=== PATIENT | female | born 1995 | race Caucasian/White ===

== ENCOUNTER 2020-06-20 04:52 | Outpatient (CLI) | payer SELFPAY ==
[2020-06-20 05:18] VITALS: BP 117/68
--- NOTE | 2020-06-20 08:10 | Ultrasound Report ---
LIMITED OB ULTRASOUND INDICATION: Amniotic fluid index FINDINGS: There is a single intrauterine in a cephalic presentation. Amniotic fluid index i s 7.2 cm which is within the normal range. BIOPHYSICAL PROFILE INDICATION: well-being COMPARISON: None FINDINGS: breathing movement: 2/2 movement: 2/2 posture and tone: 2/2 Qualitative amniotic fluid volume: 2/2 IMPRESSION: Total score for biophysical profile is 8/8 heart rate is 156 bpm Signer Name: Salvador Hardwick MD Signed: 06/20/2020 8:05 AM Workstation Name: [id number]
== END 2020-06-20 09:52 | disposition home or self-care (01) ==
LOC: TRG 04:52 → APU 04:53 → TRG 09:52
PROVIDERS: ATTEND Obstetrics & Gynecology
DX: O47.1 False labor at or after 37 completed weeks of gestation (principal); Z3A.39 39 weeks gestation of pregnancy
CPT/HCPCS: 59025; 76815; 76819

== ENCOUNTER 2020-06-20 23:29 | Inpatient (IN) | payer OTHER, SELFPAY ==
[2020-06-21] MEDS ORDERED: LIDOCAINE (2%) 20 MG/1 ML VIAL 20 ML MDV INFILTRATI ONE (00:01)
[2020-06-21] MEDS ORDERED: MINERAL OIL 30 ML ORAL LIQD PO PRN (00:01)
[2020-06-21] MEDS ORDERED: ePHEDrine SULFATE 50 MG/1 ML INJ IV PRN (00:01)
[2020-06-21] MEDS ORDERED: LACTATED RINGERS 1,000 ML ONE (00:01)
[2020-06-21] MEDS ORDERED: TERBUTALINE 1 MG/1 ML INJ SUB-Q PRN (00:01)
--- NOTE | 2020-06-21 00:16 | History and Physical Report ---
History of Present Illness Date of examination: 06/21/20 Date of admission: 06/21/2020 Chief complaint: Contractions History of present illness: 24 year old presents to L&D in active labor. Patient received care at [facility] and records are available. LMP . EDC 06/25/2020 based on US performed at 8 weeks, 6 days. significant for ESBL E. 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 labs are as follows: A+, antibody screen negative, rubella immune, hepatitis B surface antigen negative, HIV negative, RPR nonreactive, chlamydia negative, gonorrhea negative, AFP negative, 1 hour sugar test 98, GBS negative. Past History Past Medical History: no pertinent history Past Surgical History: no surgical history [employer] History: herpes (HSV 2 positive (on Valtrex suppression, denies lesions or prodromal symptoms)) Family/Genetic History: none Social history: full code. denies: smoking, alcohol abuse, prescription drug abuse, IV drug use - Obstetrical History Expected Date of Delivery: 06/25/20 Actual Gestation: 39 Week(s) 3 Day(s) : 1 Para: 0 Hx # Term Pregnancies: 0 Number of Pregnancies: 0 Spontaneous Abortions: 0 Induced : 0 Number of Living Children: 0 Medications and Allergies Allergies Allergy/AdvReac Type Severity Reaction Status Date / Time No Known Allergies Allergy Verified 06/21/20 00:07 Home Medications Medication Instructions Recorded Confirmed Last Taken Type No Known Home Medications [No 06/21/20 06/21/20 Unknown History Reported Home Medications] Active Meds: Active Medications Ephedrine Sulfate (Ephedrine Sulfate) 10 mg IV Q2M PRN PRN Reason: Hypotension Lactated Ringer's (Lactated Ringers) 1,000 mls @ 125 mls/hr IV DIRECT ROBIN Oxytocin/Sodium Chloride (Pitocin/Ns 30 Unit/500ml) 30 units in 500 mls @ 40 mls/hr IV TITR ROBIN; Protocol Lidocaine (Xylocaine 2%) 20 ml INFILTRATI ONCE ONE Stop: 06/21/20 00:02 Mineral Oil (Mineral Oil) 30 ml PO QHS PRN PRN Reason: Constipation Terbutaline Sulfate (Brethine) 0.25 mg SUB-Q ONCE PRN PRN Reason: Hyperstimulation/Hypertonicity Review of Systems All systems: negative (contractions) - Vital Signs Vital signs: Vital Signs Temp Pulse BP 98.2 F 65 115/67 06/20/20 23:30 06/20/20 23:30 06/20/20 23:30 Temp Pulse Resp BP Pulse Ox 98.2 F 65 115/67 06/20/20 23:30 06/20/20 23:30 06/20/20 23:30 - Physical Exam Abdomen: Positive: normal appearance, soft. Negative: distention, tenderness, guarding, rigidity Genitourinary (Female): Positive: normal external genitalia, normal perenium. Negative: perineal/vulvar lesions Vagina: Positive: normal moisture Uterus: Positive: enlarged. Negative: tender Anus/Rectum: Positive: normal perianal skin Extremities: Positive: normal. Negative: tenderness - Obstetrical FHR: category 2 Cervical Dilatation: 4.5 Cervical Effacement Percentage: 100 station: 0 Uterine Contraction Pattern: Regular Uterine Contraction Intensity: Moderate Results Result Diagrams: 06/20/20 23:40 All other labs normal. Assessment and Plan A: at 39 weeks, 3 days gestation. Active labor. GBS negative. HSV 2 positive serology (no lesions or prodromal symptoms). P: Admit. EFM. Epidural if desired. Continue HSV 2 suppression. Anticipate vaginal .
[2020-06-21 00:26] LABS: Hematocrit 38.1 % (30.3-42.9); Hemoglobin 12.9 gm/dl (10.1-14.3); Mean Corpuscular HGB Conc 34 % (30-34); Mean Corpuscular Volume 89 fl (79-97); Platelet Count 216 K/mm3 (140-440); Red Blood Count 4.28 M/mm3 (3.65-5.03); Red Cell Distribution Width 13.6 % (13.2-15.2)
[2020-06-21] MEDS: valACYclovir 500 MG TAB PO SCH (00:49)
[2020-06-21] MEDS ORDERED: OXYTOCIN DRIP 30 UNITS/500 ML BAG IV SCH ×2 (01:00→07:00)
[2020-06-21] MEDS: LACTATED RINGERS 1,000 ML IV SCH ×2 (01:15→03:23)
[2020-06-21] MEDS ORDERED: DEXMEDETOMIDINE 200 MCG/2 ML VIAL IV ONE (01:19)
[2020-06-21] MEDS ORDERED: NALOXONE 2 MG/2 ML INJ IV PRN (01:53)
[2020-06-21] MEDS ORDERED: diphenhydrAMINE 50 MG/ML VIAL IV PRN (01:53)
[2020-06-21] MEDS ORDERED: ONDANSETRON 4 MG/2 ML INJ IV PRN ×3 (01:53→06:53)
[2020-06-21] MEDS ORDERED: NalbUPHINE 10 MG/1 ML INJ IV PRN (01:53)
--- NOTE | 2020-06-21 01:54 | Anesthesia Consultation ---
Anesthesia Consult and Med Hx Date of service: 06/21/20 - Airway Anesthetic Teeth Evaluation: Good ROM Head & Neck: Adequate Mental/Hyoid Distance: Adequate Mallampati Class: Class I Intubation Access Assessment: Good - Pulmonary Exam CTA: Yes - Cardiac Exam Cardiac Exam: RRR - Pre-Operative Health Status ASA Pre-Surgery Classification: ASA2 Proposed Anesthetic Plan: Epidural - Pulmonary Hx Smoking: No Hx Asthma: No Hx Sleep Apnea: No - Cardiovascular System Hx Hypertension: No Hx Heart Attack/AMI: No - Central Nervous System Hx Seizures: No Hx Psychiatric Problems: No - Gastrointestinal Hx Gastroesophageal Reflux Disease: No - Endocrine Hx Renal Disease: No Hx Insulin Dependent Diabetes: No Hx Non-Insulin Dependent Diabetes: No Hx Hypothyroidism: No Hx Hyperthyroidism: No - Hematic Hx Anemia: No Hx Sickle Cell Disease: No - Other Systems Hx Alcohol Use: No
--- NOTE | 2020-06-21 01:55 | Progress Note ---
Labor Epidural - Labor Epidural Start Time: 01:20 Stop Time: 01:45 Performed by:: MARCELA RODGERS Procedure: Patient is requesting a laboring epidural for laboring pain. Patient IDed, H&P reviewed, all questions and concerns were answered, and consent was signed. Timeout was performed at bedside. Patient in sitting position. Sterile prep and drape was performed. 3ml of 1% lidocaine skin wheal at L[3]- L [4]. 18- gauge Touhy epidural needle was advanced to loss of resistance with air technique. Negative CSF negative blood. Epidural catheter advanced to [11] centimeters. [-] Aspiration [-] test dose. Sterile dressing applied. Patient tolerated procedure.
[2020-06-21] MEDS ORDERED: fentaNYL-BUPIV 2 MCG/ML-0.125% 200 MCG/100 ML BAG EPIDURAL SCH (02:00)
--- NOTE | 2020-06-21 03:04 | Event Note ---
Date: 06/21/20 FHR decelerations noted after epidural; ephedrine given by RN due to maternal hypotension s/p epidural. IV fluid bolus given and lateral positioning of patient. At 02:25 prolonged FHR deceleration noted. Patient again repositioned. Oxygen applied per face mask at [address] David notified at 02:29 of FHR decelerations and interventions taken. After interventions, FHR back to normal baseline with moderate variability and no decelerations.
[2020-06-21] MEDS ORDERED: BICITRA ORAL LIQD 30ML PO ONE (04:48)
[2020-06-21] MEDS ORDERED: FAMOTIDINE 20 MG/2 ML INJ IV ONE (04:48)
[2020-06-21] MEDS ORDERED: METOCLOPRAMIDE 10 MG/2 ML INJ IV ONE (04:48)
--- NOTE | 2020-06-21 04:53 | Event Note ---
Date: 06/21/20 Late appearing and variable FHR decelerations noted; variability has been moderate, now decreasing to minimal. AROM with meconium stained amniotic fluid. Called Dr. David at 04:31 re: FHR tracing, decelerations and decreasing FHR variability. Requested Dr. David come in to expedite delivery. section called by Dr. David at 04:40. OR team and nurses notified. Orders put in. Discussed plan of care with patient via language line.
[2020-06-21] MEDS ORDERED: PROMETHAZINE 25 MG RECT SUPP PR PRN (04:55)
[2020-06-21] MEDS ORDERED: HYDROmorphone 1 MG/1 ML INJ IV PRN (04:55)
[2020-06-21] MEDS ORDERED: PROMETHAZINE 25 MG TAB PO PRN (04:55)
[2020-06-21] MEDS ORDERED: ceFAZolin/Water 2 GM/20 ML 2 GM/20 ML SYRINGE IV ONE (04:57)
[2020-06-21] MEDS ORDERED: BUPIVACAINE/PF (0.5%) 5 MG/1 ML 30 ML VIAL INFILTRATI ONE (04:58)
[2020-06-21] MEDS ORDERED: LIDOCAINE 2%/EPINEPHRINE 1:200,000 VIAL (20 ML) INFILTRATI ONE (04:58)
[2020-06-21] MEDS ORDERED: dexAMETHasone 20 MG/5 ML VIAL ONE (04:58)
[2020-06-21] MEDS ORDERED: LACTATED RINGERS 1,000 ML IV SCH (05:00)
[2020-06-21] MEDS ORDERED: ceFAZolin/STERILE WATER 2 GM/20 ML SYRINGE IV NR (05:00)
--- NOTE | 2020-06-21 05:21 | Anesthesia Day of Surgery ---
Anesthesia Day of Surgery - Day of Surgery Patient Examined: Yes Patient H&P Reviewed: Yes Patient is NPO: Yes Beta Blockers: No Cardiac Clearance: No Pulmonary Clearance: No Sam's Test: N/A
--- NOTE | 2020-06-21 05:31 | Event Note ---
Date: 06/21/20 PT consented via phone php lamp developer for LTCS for NRFHT. Patient fully consented for the surgery. Risks, benefits, and alternatives were all discussed with the patient including risk of bleeding, infection, and potential for injury. Patient understands and accepts these risks. Patient agrees to proceed with surgery. All questions were answered.
--- NOTE | 2020-06-21 05:33 | Procedure Note ---
OB Delivery Note - Delivery Date of Delivery: 06/21/20 Surgeon: PETE INGRAM Estimated blood loss: other (800 cc) - Section Preop diagnosis: nonreassuring FHR tracing Postop diagnosis: same section procedure: section, primary low transverse Disposition: PACU Complications: none Narrative: Indication: 24-year-old G1, P0 at 39 weeks and 3 days is for primary low transverse for nonreassuring heart tracing and thick meconium remote from delivery. Findings: Normal uterus, tubes and ovaries. Thick mec fluid. Loose nuchal cord x1. Procedure: Patient taken to the operating room and prepped and draped in the usual fashion. Pfannenstiel skin incision was made and carried down to the underlying fascia. Fascia was incised and the incision was extended bilaterally. Rectus fascia dissected off the rectus muscle both superiorly and inferiorly. Peritoneum identified tented up and entered. Peritoneal incision extended superiorly and inferiorly with good visualization of the bladder. Bladder blade was placed. Uterine incision was made and the incision was extended bilaterally. The baby was delivered from in the typical vertex fashion. Baby bulb suctioned at the incision site and again after delivery. Cord was clamped and cut and handed off to waiting team. The placenta was delivered spontaneously. The uterus was exteriorized and cleared of all clots and debris. Uterine incision closed with 0 Vicryl in a running locked fashion followed by a second imbricating layer of 0 Vicryl. Good hemostasis was noted. Her urine was clear. Uterus tubes and ovaries were returned to the abdominal cavity. Gutters were cleared of all clots and debris and the pelvis was well irrigated. Good hemostasis noted. Interceed placed over the uterine incision and over the lower uterine segment in the midline. Attention was turned to the rectus fascia which was reapproximated with 0 Vicryl in a running fashion. Subcutaneous tissue was irrigated and reapproximated with 2-0 Vicryl in a running fashion. Skin was closed with 4-0 Vicryl in a subcuticular fashion followed by Dermabond. The procedure was concluded at this point and the patient tolerated the procedure well. All instrument and lap counts were correct. - A at 1 minute: 8 at 5 minutes: 9 Gender: Male
[2020-06-21] MEDS ORDERED: SODIUM CHLORIDE 0.9% IRR 1,500 ML BOTTLE IR ONE (06:09)
[2020-06-21] MEDS ORDERED: ceFAZolin/STERILE WATER 2 GM/20 ML SYRINGE IV ONE (06:09)
[2020-06-21] MEDS ORDERED: WATER FOR IRRIG STERILE 1,500 ML BOTTLE IR ONE (06:09)
[2020-06-21] MEDS ORDERED: WATER FOR INJ Sterile (PF) 10 ML ONE (06:37)
[2020-06-21] MEDS ORDERED: KETOROLAC 30 MG/1 ML INJ ONE (06:37)
[2020-06-21] MEDS ORDERED: NALOXONE 0.4 MG/1 ML INJ IV PRN (06:51)
[2020-06-21] MEDS ORDERED: KETOROLAC 30 MG/1 ML INJ IV PRN (06:51)
[2020-06-21] MEDS ORDERED: WITCH HAZEL/ GLYCERIN PAD TP PRN (06:51)
[2020-06-21] MEDS ORDERED: LANOLIN/ZINC/DIMETHICONE (LANSINOH) 7 GM TP PRN (06:51)
[2020-06-21] MEDS ORDERED: oxyCODONE /ACETAMINOPHEN 5-325MG TAB PO PRN (06:53)
[2020-06-21] MEDS ORDERED: SIMETHICONE 80 MG CHEW TAB PO PRN (06:53)
--- NOTE | 2020-06-21 07:35 | Post Anesthesia Evaluation ---
- Post Anesthesia Evaluation Patient Participated: Yes Airway Patent: Yes Stable Respiratory Function: Yes Nausea/Vomiting: No Temp > 96.8F: Yes Pain Manageable: Yes Adequeate Hydration: Yes Anesthesia Complications: No Block Receding Appropriately: Yes
--- NOTE | 2020-06-21 07:36 | Progress Note ---
Regional Anesthesia Block - Regional Anesthesia Block Start Time: 07:10 Stop Time: 07:15 Performed By:: DANIEL STILL Procedure: U/S guided bilateral tap block performed for post-operative pain requested by Dr. David. H&P & labs reviewed. Procedure explained, questions answered, consent obtained. Patient in the supine position with ekg, blood pressure cuff and pulse ox on and working in PACU. Timeout performed immediately before start of procedure. Probe placed in the mid-axillary line and the external oblique, internal oblique, and transverse abdominus muscles identified. Skin was cleansed with 0.5% Chlorahexadine and allowed to dry. A 4" 20 G [place] echogenic needle was advanced in plane until the tip was in the fascial plane between the internal oblique and the transverse abdominus. After negative aspiration 35 ml/side of [30 ml 0.5% Bupivacaine], [50 mcg dexmedetomidine], [10 mg dexamethasone], and [40 ml sterile saline] was injected in 5 ml increments with negative aspiration in between. Patient tolerated procedure well.
[2020-06-21] MEDS ORDERED: FLU VACC QUAD 2020-2021 (6 months +)/PF 60 0.5 ML SYRINGE IM ONE (12:00)
[2020-06-21] MEDS ORDERED: SENNOSIDES 8.6 MG TAB PO PRN (22:00)
[2020-06-21] MEDS ORDERED: MAGNESIUM HYDROXIDE (MOM) ORAL LIQD UDC PO PRN (22:00)
[2020-06-22] MEDS: valACYclovir 500 MG TAB PO SCH ×3 (03:30→22:01)
[2020-06-22 06:07] LABS: Hematocrit 31.4 % (30.3-42.9); Hemoglobin 10.7 gm/dl (10.1-14.3)
[2020-06-22] MEDS: IBUPROFEN 800 MG TAB PO PRN ×2 (09:55→22:02)
--- NOTE | 2020-06-22 09:58 | Progress Note ---
Assessment and Plan - Patient Problems (1) S/P primary low transverse Current Visit: Yes Status: Acute Plan to address problem: Continue routine PP orders Keep dressing clean and dry, remove on POD#2 Anticipate d/c home in 24-48 hrs if stable (2) Anemia Current Visit: Yes Status: Acute Qualifiers: Anemia type: other cause Other causes of anemia: acute posthemorrhagic Qualified Code(s): D62 - Acute posthemorrhagic anemia Plan to address problem: Asymptomatic Increase iron rich food into diet Subjective - Subjective Date of service: 06/22/20 Principal diagnosis: S/P primary C/S; POD#1 Interval history: See admission H&P; OB operative note and PP progress Patient reports: appetite normal, voiding normally, pain well controlled, flatus, ambulating normally, no bowel movement Hydes: doing well, bottle feeding (and ) Objective - Vital Signs Latest vital signs: Vital Signs Temp Pulse Resp BP BP Pulse Ox 06/22/20 07:50 98.5 F 89 20 129/80 06/22/20 05:32 98.2 F 78 18 103/58 99 06/22/20 02:48 18 06/21/20 23:58 97.4 F L 72 18 110/74 98 06/21/20 21:25 98.8 F 85 18 110/77 93 06/21/20 16:40 98 F 63 20 103/67 06/21/20 12:58 20 Intake and Output 06/21/20 06/22/20 06/22/20 23:59 07:59 15:59 Intake Total 880 560 Output Total 2100 Balance -1220 560 Intake: Oral 760 440 Intake, Free Water 120 120 Output: Urine 2100 Indwelling Catheter 1500 Void 600 Other: Total, Intake Amount 200 240 Total, Output Amount 300 # Voids Void 0 1 - Exam Breasts: Present: normal Cardiovascular: Present: Regular rate Lungs: Present: Normal air movement Abdomen: Present: soft, tenderness Uterus: Present: firm, fundal height below umbilicus (U-2) Extremities: Present: normal Deep Tendon Reflex Grade: Normal +2 Incision: Present: dry, intact (no shadow drainage or bleeding noted)
[2020-06-23] MEDS ORDERED: DIPHtheria,PERTUSSIS(ACELL),TETANUS VACCINE/PF 0.5 ML VIAL IM ONE (06:00)
[2020-06-23] MEDS: valACYclovir 500 MG TAB PO SCH (09:12)
[2020-06-23] MEDS ORDERED: medroxyPROGESTERone ACETATE 150 MG/ML SYRINGE IM NR (12:13)
--- NOTE | 2020-06-23 12:13 | Progress Note ---
Assessment and Plan A: Post op Day #2 Stable P: Follow routine postop orders Depo 150 mg IM x1 prior to d/c RTO in 1 week for incision check Subjective - Subjective Date of service: 06/23/20 Principal diagnosis: S/P primary C/S; POD#2 Patient reports: appetite normal, voiding normally, pain well controlled, flatus, ambulating normally : doing well, other () Objective - Vital Signs Latest vital signs: Vital Signs Temp Pulse Resp BP BP Pulse Ox 06/23/20 08:19 99.2 F 60 18 98/60 99 06/23/20 00:12 98.0 F 66 18 108/59 98 06/22/20 22:02 18 06/22/20 17:00 98.4 F 85 20 113/78 Intake and Output 06/22/20 06/23/20 06/23/20 22:59 06:59 14:59 Intake Total 480 360 120 Balance 480 360 120 Intake: Oral 480 120 Intake, Free Water 360 Other: Total, Intake Amount 120 120 # Voids Void 1 1 1 - Exam Breasts: Present: normal Cardiovascular: Present: Regular rate, Normal S1, Normal S2 Lungs: Present: Clear to auscultation, Normal air movement Abdomen: Present: normal appearance, soft, normal bowel sounds Uterus: Present: normal, firm, fundal height below umbilicus Extremities: Present: normal Incision: Present: normal, dry, intact
--- NOTE | 2020-06-23 12:15 | Discharge Summary ---
Providers - Providers Date of Admission: 06/21/20 00:01 Date of discharge: 06/23/20 Attending physician: PETE INGRAM Primary care physician: PETE INGRAM Hospitalization Reason for admission: active labor Delivery: Procedure: primary low transverse Incision: normal, dry, intact Other procedures: none complications: none Discharge diagnosis: IUP at term delivered baby: male Condition at discharge: Good Disposition: DC-01 TO HOME OR SELFCARE Plan - Discharge Medications Prescriptions: Ibuprofen [Motrin 800 MG tab] 800 mg PO Q8HR PRN #30 tablet PRN Reason: Pain , Severe (7-10) oxyCODONE /ACETAMINOPHEN [Percocet 5/325] 1 tab PO Q4HR PRN #30 tab PRN Reason: Pain , Severe (7-10) - Provider Discharge Summary Activity: routine, no sex for 6 weeks, no heavy lifting 4 weeks, no strenuous exercise Diet: routine Instructions: routine Additional instructions: [] Smoking cessation referral if applicable(refer to patient education folder for contact #) [] Refer to [facility]'s [facility] Booklet Call your doctor immediately for: * Fever > 100.5 * Heavy vaginal bleeding ( >1 pad per hour) * Severe persistent headache * Shortness of breath * Reddened, hot, painful area to leg or breast * Drainage or odor from incision. * Keep incision clean and dry at all times and follow doctor's instructions regarding bathing/showering - Follow up plan Follow up: PETE INGRAM MD [Primary Care Provider] - 7 Days
[2020-06-23 14:27] VITALS: BP 101/62
== END 2020-06-23 15:20 | disposition home or self-care (01) | DRG 787 ==
LOC: TRG 23:29 → APU 23:33 → TRG 06-21 00:01 → LD 06-21 00:01 → OB 06-21 08:36
PROVIDERS: ADMIT Obstetrics & Gynecology; ATTEND Obstetrics & Gynecology
PROC: 10D00Z1 Extraction of Products of Conception, Low, Open Approach (ICD-10-PCS; principal; 2020-06-21)
PROC: 3E0234Z Introduction of Serum, Toxoid and Vaccine into Muscle, Percutaneous Approach (ICD-10-PCS; 2020-06-23)
DX: O76 Abnormality in fetal heart rate and rhythm complicating labor and delivery (principal); D62 Acute posthemorrhagic anemia; O98.52 Other viral diseases complicating childbirth; Z3A.39 39 weeks gestation of pregnancy; Z37.0 Single live birth; O99.02 Anemia complicating childbirth; B00.9 Herpesviral infection, unspecified; Z20.828 Contact with and (suspected) exposure to other viral communicable diseases; Z23 Encounter for immunization
CPT/HCPCS: 36415; 85014; 85018; 85027; 86850; 86900; 86901; 96372; G0378; J0690; J1100; J1885; J2765; J3105; J7120; U0003